=== PATIENT | male | born 1935 | race Caucasian/White ===

== ENCOUNTER 2017-04-29 11:11 | Inpatient (IN) | payer MEDICARE, OTHER ==
[~2017-04-29] VITALS: Ht 172.7 cm; Wt 72.0 kg
[~2017-04-29 11:11] MED LIST: AEC81 PO; AMLO-340 PO; ENOX150D4 SQ; FURO40TA7 PO; METOPROLOL; PANT40TA25 PO; RANO10003 PO; TERA10CA4 PO
[2017-04-29 11:51] LABS: HEMATOCRIT 29.3 % (42-54); MEAN CORPUSCULAR HEMOGLOBIN 35.2 pg (27.0-33.0); MEAN CORPUSCULAR HGB CONC 35.5 g/dL (32.0-36.0); PLATELET COUNT (AUTO) 139 K/uL (130-400); RED BLOOD CELL COUNT(AUTO) 2.96 MIL/uL (4.50-6.20); RED CELL DISTRIBUTION WIDTH 13.4 % (11.0-15.5); WHITE BLOOD COUNT (AUTO) 5.8 K/uL (4.8-10.8)
[2017-04-29 12:04] LABS: ALBUMIN 3.3 g/dL (3.5-5.0); BILIRUBIN,TOTAL 0.5 mg/dL (0.2-1.0); TOTAL PROTEIN, SERUM 6.5 g/dL (6.0-8.3)
[2017-04-29 12:06] LABS: CREATININE 2.4 mg/dL (0.5-1.5)
[2017-04-29 12:23] LABS: INR 1.11 (0.85-1.15); PARTIAL THROMBOPLASTIN TIME 29.4 SEC (26.3-35.5); PROTHROMBIN TIME 11.6 SEC (9.6-11.6)
[2017-04-29 12:43] LABS: CREATINE KINASE MB 0.5 ng/mL (0.5-3.6); MAGNESIUM 1.7 mg/dL (1.80-2.40)
[2017-04-29 15:20] VITALS: BP 143/55
[2017-04-29] MEDS: THIAMINE HCL 100 MG/ML 2ML VIAL IV SCH (15:50)
[2017-04-29] MEDS ORDERED: ONDANSETRON HCL 4 MG/2 ML VIAL IVP PRN (16:00)
[2017-04-29 20:00] VITALS: BP 120/57
[2017-04-29 21:57] LABS: CREATINE KINASE MB 0.6 ng/mL (0.5-3.6); CREATINE KINASE, TOTAL 29 U/L (21-232); MYOGLOBIN 144 ng/mL (10-92); TROPONIN I < 0.04 ng/mL (0.00-0.06)
[2017-04-30] VITALS (12 sets, daily range): BP systolic 110–139; BP diastolic 43–60
[2017-04-30 04:28] LABS: HEMATOCRIT 25.7 % (42-54); MEAN CORPUSCULAR HEMOGLOBIN 35.3 pg (27.0-33.0); MEAN CORPUSCULAR HGB CONC 35.9 g/dL (32.0-36.0); MEAN CORPUSCULAR VOLUME 98.5 fL (79-99); PLATELET COUNT (AUTO) 127 K/uL (130-400); RED BLOOD CELL COUNT(AUTO) 2.61 MIL/uL (4.50-6.20); RED CELL DISTRIBUTION WIDTH 13.9 % (11.0-15.5); WHITE BLOOD COUNT (AUTO) 6.3 K/uL (4.8-10.8)
[2017-04-30 04:57] LABS: CARBON DIOXIDE 31 mmol/L (21-32); CHLORIDE 101 mmol/L (101-111); CREATINE KINASE MB < 0.5 ng/mL (0.5-3.6); CREATINE KINASE, TOTAL 23 U/L (21-232); CREATININE 2.5 mg/dL (0.5-1.5); GLOMERULAR FILTR. RATE CALC 26 mL/min (>60); GLUCOSE,RANDOM 102 mg/dL (70-105); MYOGLOBIN 140 ng/mL (10-92); PHOSPHORUS 3.8 mg/dL (2.5-4.9); POTASSIUM 3.4 mmol/L (3.5-5.1); SODIUM SERUM 139 mmol/L (136-145); TROPONIN I < 0.04 ng/mL (0.00-0.06); UREA NITROGEN, BLOOD 17 mg/dL (7-18)
[2017-04-30] MEDS ORDERED: 0.9% SODIUM CHLORIDE 250 ML IV BAG IV PRN (06:15)
[2017-04-30] MEDS ORDERED: ALBUMIN (HUMAN) 25% 100 ML IV PRN (06:15)
[2017-04-30] MEDS: PANTOPRAZOLE SODIUM 40 MG TABLET.DR PO SCH (09:00)
[2017-04-30] MEDS: THIAMINE HCL 100 MG/ML 2ML VIAL IV SCH (09:00)
[2017-04-30] MEDS: SODIUM CHLORIDE 0.9% 1000ML 1,000 ML IV PRN (09:22)
[2017-04-30] MEDS: HEPARIN SODIUM 5000UNIT/ML 1ML VIAL IJ PRN (09:24)
[2017-04-30 09:48] LABS: CREATINE KINASE MB < 0.5 ng/mL (0.5-3.6); CREATINE KINASE, TOTAL 24 U/L (21-232); MYOGLOBIN 135 ng/mL (10-92); TROPONIN I < 0.04 ng/mL (0.00-0.06)
[2017-04-30] MEDS: METOCLOPRAMIDE 5 MG TABLET PO SCH ×2 (11:30→17:00)
[2017-05-01] VITALS (9 sets, daily range): BP systolic 101–137; BP diastolic 44–60
[2017-05-01] MEDS ORDERED: ASPI-555 PO (08:29)
[2017-05-01] MEDS ORDERED: PANT40TA25 PO (08:29)
[2017-05-01] MEDS ORDERED: APIX2.5T PO (08:29)
[2017-05-01] MEDS ORDERED: RANO10003 PO (08:29)
[2017-05-01] MEDS ORDERED: TORS20TA PO (08:29)
[2017-05-01] MEDS ORDERED: ATOR40TA69 PO (08:29)
[2017-05-01] MEDS ORDERED: AMIO200T2 PO (08:29)
[2017-05-01] MEDS ORDERED: ONDA4TAB7 PO (08:29)
[2017-05-01] MEDS ORDERED: NON-FORMULARY MEDICATION 1 EACH (Ranolazine (Ranexa) 1,000 MG) PO SCH (08:30)
[2017-05-01] MEDS ORDERED: ASPIRIN 81 MG EC TAB PO SCH (09:00)
[2017-05-01] MEDS ORDERED: TORSEMIDE 20 MG TAB PO SCH (09:00)
[2017-05-01] MEDS: AMIODARONE HCL 200 MG TABLET PO SCH ×2 (09:53→22:37)
[2017-05-01] MEDS: PANTOPRAZOLE SODIUM 40 MG TABLET.DR PO SCH (09:53)
[2017-05-01] MEDS: APIXABAN 2.5 MG TABLET PO SCH ×2 (09:53→21:00)
[2017-05-01] MEDS: THIAMINE HCL 100 MG/ML 2ML VIAL IV SCH (09:54)
[2017-05-01] MEDS: METOCLOPRAMIDE 5 MG TABLET PO SCH ×3 (09:59→17:39)
[2017-05-01] MEDS: RANOLAZINE 500 MG TAB.SR.12H PO SCH ×2 (09:59→22:37)
[2017-05-01] MEDS: ATORVASTATIN CALCIUM 40 MG TABLET PO SCH (22:37)
[2017-05-02 03:00] VITALS: BP 121/49
[2017-05-02 05:45] LABS: HEMATOCRIT 28.1 % (42-54); MEAN CORPUSCULAR HEMOGLOBIN 34.3 pg (27.0-33.0); MEAN CORPUSCULAR HGB CONC 34.9 g/dL (32.0-36.0); MEAN CORPUSCULAR VOLUME 98.2 fL (79-99); PLATELET COUNT (AUTO) 139 K/uL (130-400); RED BLOOD CELL COUNT(AUTO) 2.87 MIL/uL (4.50-6.20); RED CELL DISTRIBUTION WIDTH 13.4 % (11.0-15.5); WHITE BLOOD COUNT (AUTO) 6.7 K/uL (4.8-10.8)
[2017-05-02 05:51] LABS: POTASSIUM 3.5 mmol/L (3.5-5.1)
[2017-05-02 05:55] LABS: BAND NEUTROPHILS % (MANUAL) 1 % (0-2); EOSINOPHILS % (MANUAL) 5 % (1-6); LYMPHOCYTES % (MANUAL) 13 % (22-44); MONOCYTES % (MANUAL) 10 % (2-9); SEGMENTED NEUTROPHILS % 71 % (40-70)
[2017-05-02 05:56] LABS: MAN.DIFF COMMENT-IMPRESSION MANUAL DIFFERENTIAL; PLATELET MORPHOLOGY COMMENT SLIGHTLY DECREASED
[2017-05-02 08:31] VITALS: BP 128/49
[2017-05-02] MEDS: METOCLOPRAMIDE 5 MG TABLET PO SCH ×3 (09:43→17:41)
[2017-05-02] MEDS: RANOLAZINE 500 MG TAB.SR.12H PO SCH ×2 (09:44→23:40)
[2017-05-02] MEDS: THIAMINE HCL 100 MG/ML 2ML VIAL IV SCH (09:44)
[2017-05-02] MEDS: AMIODARONE HCL 200 MG TABLET PO SCH ×2 (09:44→23:40)
[2017-05-02] MEDS: PANTOPRAZOLE SODIUM 40 MG TABLET.DR PO SCH (09:44)
[2017-05-02 11:36] VITALS: BP 118/55
[2017-05-02 15:47] VITALS: BP 111/42
[2017-05-02 19:00] VITALS: BP 114/36
[2017-05-02 23:00] VITALS: BP 116/43
[2017-05-02] MEDS: ATORVASTATIN CALCIUM 40 MG TABLET PO SCH (23:40)
[2017-05-03 03:00] VITALS: BP 99/42
[2017-05-03 04:39] LABS: HEMATOCRIT 27.1 % (42-54); MEAN CORPUSCULAR HGB CONC 35.4 g/dL (32.0-36.0); MEAN CORPUSCULAR VOLUME 98.8 fL (79-99); PLATELET COUNT (AUTO) 146 K/uL (130-400); RED BLOOD CELL COUNT(AUTO) 2.74 MIL/uL (4.50-6.20); RED CELL DISTRIBUTION WIDTH 13.6 % (11.0-15.5); WHITE BLOOD COUNT (AUTO) 7.1 K/uL (4.8-10.8)
[2017-05-03 04:45] VITALS: BP 90/50
[2017-05-03 04:47] LABS: CREATININE 1.9 mg/dL (0.5-1.5); POTASSIUM 3.3 mmol/L (3.5-5.1)
[2017-05-03 04:50] LABS: INR 1.04 (0.85-1.15); PARTIAL THROMBOPLASTIN TIME 29.3 SEC (26.3-35.5); PROTHROMBIN TIME 10.9 SEC (9.6-11.6)
[2017-05-03 07:00] VITALS: BP 123/56
[2017-05-03] MEDS: METOCLOPRAMIDE 5 MG TABLET PO SCH ×2 (07:30→12:30)
[2017-05-03] MEDS: HEPARIN SODIUM 5000UNIT/ML 1ML VIAL IJ PRN (09:27)
[2017-05-03] MEDS: SODIUM CHLORIDE 0.9% 1000ML 1,000 ML IV PRN (09:28)
[2017-05-03] MEDS: RANOLAZINE 500 MG TAB.SR.12H PO SCH (10:33)
[2017-05-03] MEDS: THIAMINE HCL 100 MG/ML 2ML VIAL IV SCH (10:33)
[2017-05-03] MEDS: AMIODARONE HCL 200 MG TABLET PO SCH (10:33)
[2017-05-03] MEDS: PANTOPRAZOLE SODIUM 40 MG TABLET.DR PO SCH (10:33)
[2017-05-03 11:00] VITALS: BP 107/42
[2017-05-03] MEDS ORDERED: METO5TAB2 PO (12:43)
[2017-05-03] MEDS ORDERED: RANO500T2 PO (12:43)
[2017-05-03 15:46] VITALS: BP 100/45
== END 2017-05-03 17:05 | disposition home or self-care (01) | DRG 682 ==
LOC: EDH 11:11 → EDHIP 13:50 → 3CH 14:13
PROVIDERS: ADMIT Internal Medicine Nephrology; ATTEND Internal Medicine Nephrology
PROC: 5A1D70Z Performance of Urinary Filtration, Intermittent, Less than 6 Hours Per Day (ICD-10-PCS; principal; 2017-04-29)
PROC: 5A1D70Z Performance of Urinary Filtration, Intermittent, Less than 6 Hours Per Day (ICD-10-PCS; 2017-04-29)
PROC: 5A1D70Z Performance of Urinary Filtration, Intermittent, Less than 6 Hours Per Day (ICD-10-PCS; 2017-04-29)
DX: I12.0 Hypertensive chronic kidney disease with stage 5 chronic kidney disease or end stage renal disease (principal); N18.6 End stage renal disease; I42.9 Cardiomyopathy, unspecified; I48.0 Paroxysmal atrial fibrillation; I48.91 Unspecified atrial fibrillation; K31.84 Gastroparesis; E78.5 Hyperlipidemia, unspecified; Z99.2 Dependence on renal dialysis; I25.10 Atherosclerotic heart disease of native coronary artery without angina pectoris; Z95.1 Presence of aortocoronary bypass graft; D64.9 Anemia, unspecified; Z72.0 Tobacco use; Z79.01 Long term (current) use of anticoagulants; Z80.8 Family history of malignant neoplasm of other organs or systems; Z82.49 Family history of ischemic heart disease and other diseases of the circulatory system; Z83.3 Family history of diabetes mellitus
CPT/HCPCS: 36415; 70450; 72125; 80048; 80053; 82550; 82553; 82948; 83735; 83874; 84100; 84443; 84484; 85025; 85027; 85610; 85730; 90935; 93005; 93306; 93880; 97039; J1644; J3411; J7030

== ENCOUNTER → 2019-12-24 | Outpatient (CLI) | payer MEDICARE ==
[~2019-12-24] MED LIST changes: -AEC81 PO; +AMIO200T5 PO; -AMLO-340 PO; +APIX2.5T PO; +ASPI-556 PO; +ATOR40TA69 PO; -ENOX150D4 SQ; -FURO40TA7 PO; +METO5TAB2 PO; -METOPROLOL; +ONDA4TAB7 PO; -PANT40TA25 PO; +PANT40TA54 PO; -RANO10003 PO; +RANO500T2 PO; -TERA10CA4 PO
== END | disposition home or self-care (01) ==
LOC: SHCH 09:17
PROVIDERS: ATTEND Internal Medicine Cardiovascular Disease
DX: R06.09 Other forms of dyspnea (principal)
CPT/HCPCS: 93306; 93356

== ENCOUNTER → 2020-01-05 | Outpatient (CLI) | payer MEDICARE ==
[~2020-01-05] MED LIST changes: -AMIO200T5 PO; +AMIO200T6 PO
== END | disposition home or self-care (01) ==
LOC: RAH 12:48
PROVIDERS: ATTEND Internal Medicine Cardiovascular Disease
DX: J98.11 Atelectasis (principal); R18.8 Other ascites; J84.10 Pulmonary fibrosis, unspecified; J90 Pleural effusion, not elsewhere classified
CPT/HCPCS: 71250

== ENCOUNTER → 2020-03-30 | Outpatient (CLI) | payer MEDICARE ==
[~2020-03-30] MED LIST changes: +ALBUTEROL SULFATE 0.083% 2.5 MG/3 ML INH IH ONE
== END | disposition home or self-care (01) ==
LOC: RESP 07:59
PROVIDERS: ATTEND Internal Medicine Cardiovascular Disease
DX: I25.5 Ischemic cardiomyopathy (principal); J45.909 Unspecified asthma, uncomplicated
CPT/HCPCS: 94060; 94727; 94729

== ENCOUNTER 2020-12-01 13:57 | Inpatient (IN) | payer MEDICARE ==
[~2020-12-01] VITALS: Ht 172.7 cm; Wt 75.9 kg
[~2020-12-01 13:57] MED LIST changes: -ALBUTEROL SULFATE 0.083% 2.5 MG/3 ML INH IH ONE
[2020-12-01 14:12] VITALS: BP 121/56
[2020-12-01 14:20] VITALS: BP 121/56
[2020-12-01] MEDS ORDERED: GUAIFENESIN-DM 200/20 MG 10 ML PO ONE (15:00)
[2020-12-01 15:13] LABS: BASOPHILS % (AUTO) 0.8 % (0.0-5.0); EOSINOPHILS % (AUTO) 2.1 % (0.0-8.0); HEMATOCRIT 32.3 % (42-54); LYMPHOCYTES % (AUTO) 13.6 % (21.0-51.0); MEAN CORPUSCULAR HEMOGLOBIN 31.6 pg (27.0-33.0); MEAN CORPUSCULAR HGB CONC 31.9 g/dL (32.0-36.0); MEAN CORPUSCULAR VOLUME 99.1 fL (79-99); MONOCYTES % (AUTO) 10.4 % (3.0-13.0); NEUTROPHILS % (AUTO) 72.8 % (40.0-77.0); PLATELET COUNT (AUTO) 96 K/uL (130-400); RED BLOOD CELL COUNT(AUTO) 3.26 MIL/uL (4.50-6.20); RED CELL DISTRIBUTION WIDTH 14.6 % (11.0-15.5); WHITE BLOOD COUNT (AUTO) 6.6 K/uL (4.8-10.8)
[2020-12-01 15:28] LABS: INR 1.3 (0.85-1.15); PROTHROMBIN TIME 13.8 SEC (9.6-11.6)
[2020-12-01 15:30] LABS: PARTIAL THROMBOPLASTIN TIME 35.2 SEC (26.3-35.5)
[2020-12-01 15:44] LABS: CREATININE 2.8 mg/dL (0.5-1.5); POTASSIUM 3.8 mmol/L (3.5-5.1)
[2020-12-01 15:47] LABS: B-TYPE NATRIURETIC PEPTIDE 1360 pg/mL (0-100)
[2020-12-01 15:51] LABS: ALBUMIN 3.2 g/dL (3.5-5.0); BILIRUBIN,TOTAL 1.5 mg/dL (0.2-1.0); MAGNESIUM 2.1 mg/dL (1.80-2.40); TOTAL PROTEIN, SERUM 7.6 g/dL (6.0-8.3)
[2020-12-01 16:50] LABS: ABG HCO3 28.5 mmol/L (21.0-28.0); ABG OXYGEN SATURATION 94.1 % (95.0-99.0); ABG PCO2 42 mmHg (35-48)
[2020-12-01] MEDS ORDERED: IOHEXOL 350 MG/ML 100ML INFUS..BTL IV ONE (17:46)
[2020-12-01 18:00] VITALS: BP 134/56
[2020-12-01] MEDS ORDERED: DEXTROSE 50%-WATER 50 ML DISP.SYRIN IV PRN (19:30)
[2020-12-01] MEDS ORDERED: GLUCAGON 1MG KIT 1 MG ML IM PRN (19:30)
[2020-12-01] MEDS ORDERED: ONDANSETRON 4MG INJ IVP PRN (20:00)
[2020-12-01 20:46] VITALS: BP 136/52
[2020-12-01] MEDS: INSULIN HUMULIN R 100 UNIT/ML 3ML SQ SCH (21:00)
[2020-12-01] MEDS: METOPROLOL TARTRATE 25 MG TAB PO SCH ×2 (21:00→21:28)
[2020-12-01 21:09] LABS: APPEARANCE,URINE CLEAR (CLEAR); BILIRUBIN,URINE SMALL (NEGATIVE); COLOR,URINE YELLOW (YELLOW); GLUCOSE, URINE (UA) NEGATIVE (NEGATIVE); KETONES,URINE 5 mg/dL (NEGATIVE); LEUKOCYTE ESTERASE ,URINE NEGATIVE (NEGATIVE); NITRATE,URINE NEGATIVE (NEGATIVE); OCCULT BLOOD,URINE SMALL (NEGATIVE); PROTEIN,URINE 100 mg/dL (NEGATIVE)
[2020-12-01 21:18] LABS: BACTERIA,URINE Few /HPF (None Seen); MUCUS,URINE Moderate LPF (None Seen); SQUAMOUS EPITHELIAL CELL,UR Few /HPF (0-2)
[2020-12-01] MEDS: HEPARIN 5,000 UNIT VIAL SQ SCH (21:28)
[2020-12-01] MEDS: FUROSEMIDE 40MG VIAL IVP SCH (21:28)
[2020-12-02] VITALS (31 sets, daily range): BP systolic 99–144; BP diastolic 43–85
[2020-12-02 04:09] LABS: BASOPHILS % (AUTO) 0.8 % (0.0-5.0); EOSINOPHILS % (AUTO) 2.5 % (0.0-8.0); HEMATOCRIT 30.2 % (42-54); LYMPHOCYTES % (AUTO) 13.5 % (21.0-51.0); MEAN CORPUSCULAR HEMOGLOBIN 31.9 pg (27.0-33.0); MEAN CORPUSCULAR HGB CONC 31.8 g/dL (32.0-36.0); MEAN CORPUSCULAR VOLUME 100.3 fL (79-99); MONOCYTES % (AUTO) 10.8 % (3.0-13.0); PLATELET COUNT (AUTO) 82 K/uL (130-400); RED BLOOD CELL COUNT(AUTO) 3.01 MIL/uL (4.50-6.20); RED CELL DISTRIBUTION WIDTH 14.7 % (11.0-15.5); WHITE BLOOD COUNT (AUTO) 7.5 K/uL (4.8-10.8)
[2020-12-02 04:19] LABS: MAGNESIUM 2.1 mg/dL (1.80-2.40); POTASSIUM 3.7 mmol/L (3.5-5.1)
[2020-12-02] MEDS: INSULIN HUMULIN R 100 UNIT/ML 3ML SQ SCH ×4 (07:30→20:18)
[2020-12-02] MEDS: ASPIRIN 81MG CHEW TAB PO SCH (09:00)
[2020-12-02] MEDS: EPOETIN ALFA-EPBX (ESRD) 10,000 UNIT/ML VIAL SQ SCH (09:00)
[2020-12-02] MEDS: Vitamin B Complex/Vit C/Folic Acid PO SCH (09:00)
[2020-12-02] MEDS: HEPARIN 5,000 UNIT VIAL SQ SCH (09:00)
[2020-12-02] MEDS: METOPROLOL TARTRATE 25 MG TAB PO SCH ×2 (09:00→20:56)
[2020-12-02 17:07] LABS: APPEARANCE BODY FLUID CLOUDY (CLEAR); COLOR,BODY FLUID DARK YELLOW (LT YELLOW); SPECIMENTYPE,BODY FLUID THORACENTESIS; TOTAL VOLUME,BODY FLUID 1700 mL
[2020-12-02 17:08] LABS: BODY FLUID RBC 3437 /cu. mm.; BODY FLUID WBC 105 /cu. mm.
[2020-12-02 17:19] LABS: BF LYMPHOCYTE 75 %; BF MONOCYTE 2 %
[2020-12-02] MEDS: ATORVASTATIN 40 MG TABLET PO SCH (20:33)
[2020-12-02] MEDS: FUROSEMIDE 40MG VIAL IVP SCH (20:33)
[2020-12-03] VITALS (7 sets, daily range): BP systolic 101–113; BP diastolic 44–51
[2020-12-03 05:29] LABS: HEMATOCRIT 28.1 % (42-54); MEAN CORPUSCULAR HGB CONC 32.4 g/dL (32.0-36.0); MEAN CORPUSCULAR VOLUME 98.9 fL (79-99); RED BLOOD CELL COUNT(AUTO) 2.84 MIL/uL (4.50-6.20); RED CELL DISTRIBUTION WIDTH 14.6 % (11.0-15.5); WHITE BLOOD COUNT (AUTO) 7.1 K/uL (4.8-10.8)
[2020-12-03 05:48] LABS: CREATININE 3.1 mg/dL (0.5-1.5); POTASSIUM 3.6 mmol/L (3.5-5.1)
[2020-12-03] MEDS: INSULIN HUMULIN R 100 UNIT/ML 3ML SQ SCH ×4 (06:33→20:14)
[2020-12-03] MEDS: METOPROLOL TARTRATE 25 MG TAB PO SCH ×2 (09:33→20:14)
[2020-12-03] MEDS: ASPIRIN 81MG CHEW TAB PO SCH (09:33)
[2020-12-03] MEDS: Vitamin B Complex/Vit C/Folic Acid PO SCH (09:34)
[2020-12-03] MEDS: PANTOPRAZOLE 40 MG TAB DR PO SCH (09:34)
[2020-12-03 15:11] LABS: HEPATITIS Bs ANTIGEN SCREEN P Negative (Negative)
[2020-12-03] MEDS: ATORVASTATIN 40 MG TABLET PO SCH (20:14)
[2020-12-03] MEDS: FUROSEMIDE 40MG VIAL IVP SCH (20:15)
[2020-12-04 04:32] VITALS: BP 120/45
[2020-12-04] MEDS: INSULIN HUMULIN R 100 UNIT/ML 3ML SQ SCH ×4 (06:22→20:27)
[2020-12-04] MEDS: METOPROLOL TARTRATE 25 MG TAB PO SCH ×2 (08:30→20:08)
[2020-12-04] MEDS: ASPIRIN 81MG CHEW TAB PO SCH (08:31)
[2020-12-04] MEDS: PANTOPRAZOLE 40 MG TAB DR PO SCH (08:31)
[2020-12-04] MEDS: Vitamin B Complex/Vit C/Folic Acid PO SCH (08:31)
[2020-12-04 09:16] VITALS: BP 108/49
[2020-12-04 12:19] VITALS: BP 119/57
[2020-12-04 16:29] LABS: APPEARANCE,URINE CLEAR (CLEAR); BILIRUBIN,URINE MODERATE (NEGATIVE); COLOR,URINE BROWN (YELLOW); GLUCOSE, URINE (UA) NEGATIVE (NEGATIVE); KETONES,URINE 15 mg/dL (NEGATIVE); LEUKOCYTE ESTERASE ,URINE TRACE (NEGATIVE); NITRATE,URINE POSITIVE (NEGATIVE); OCCULT BLOOD,URINE LARGE (NEGATIVE); PROTEIN,URINE 100 mg/dL (NEGATIVE)
[2020-12-04 16:47] VITALS: BP 119/60
[2020-12-04 16:50] LABS: AMORPHOUS SEDIMENT,UR Few /LPF (None Seen); BACTERIA,URINE Few /HPF (None Seen); MUCUS,URINE Few LPF (None Seen); RBC,URINE 26-50 /HPF (0-1); SQUAMOUS EPITHELIAL CELL,UR Few /HPF (0-2)
[2020-12-04 20:01] VITALS: BP 121/45
[2020-12-04] MEDS: APIXABAN 2.5 MG TABLET PO SCH (20:03)
[2020-12-04] MEDS: ATORVASTATIN 40 MG TABLET PO SCH (20:05)
[2020-12-04] MEDS: FUROSEMIDE 40MG VIAL IVP SCH (20:05)
[2020-12-04 23:31] VITALS: BP 141/58
[2020-12-05] VITALS (20 sets, daily range): BP systolic 101–137; BP diastolic 37–73
[2020-12-05] MEDS: INSULIN HUMULIN R 100 UNIT/ML 3ML SQ SCH ×4 (06:25→20:52)
[2020-12-05] MEDS: Vitamin B Complex/Vit C/Folic Acid PO SCH (08:39)
[2020-12-05] MEDS: PANTOPRAZOLE 40 MG TAB DR PO SCH (08:39)
[2020-12-05] MEDS: ASPIRIN 81MG CHEW TAB PO SCH (08:39)
[2020-12-05] MEDS: APIXABAN 2.5 MG TABLET PO SCH ×2 (08:39→20:48)
[2020-12-05] MEDS: METOPROLOL TARTRATE 25 MG TAB PO SCH ×2 (08:39→20:52)
[2020-12-05 08:59] LABS: HEMATOCRIT 28.2 % (42-54); MEAN CORPUSCULAR HEMOGLOBIN 31.6 pg (27.0-33.0); MEAN CORPUSCULAR HGB CONC 31.9 g/dL (32.0-36.0); MEAN CORPUSCULAR VOLUME 98.9 fL (79-99); PLATELET COUNT (AUTO) 101 K/uL (130-400); RED BLOOD CELL COUNT(AUTO) 2.85 MIL/uL (4.50-6.20); RED CELL DISTRIBUTION WIDTH 14.5 % (11.0-15.5); WHITE BLOOD COUNT (AUTO) 5.5 K/uL (4.8-10.8)
[2020-12-05 09:14] LABS: CREATININE 6.2 mg/dL (0.5-1.5); POTASSIUM 3.7 mmol/L (3.5-5.1)
[2020-12-05 09:43] LABS: EOSINOPHILS % (MANUAL) 3 % (1-6); LYMPHOCYTES % (MANUAL) 7 % (22-44); MAN.DIFF COMMENT-IMPRESSION MANUAL DIFFERENTIAL; MONOCYTES % (MANUAL) 10 % (2-9); SEGMENTED NEUTROPHILS % 80 % (40-70)
[2020-12-05 09:45] LABS: PLATELET MORPHOLOGY COMMENT SLIGHTLY DECREASED
[2020-12-05] MEDS: 0.9%NACL 1000ML 1,000 ML IV SCH (12:00)
[2020-12-05] MEDS ORDERED: LIDOCAINE 5% TOPICAL PATCH TP SCH (12:00)
[2020-12-05] MEDS ORDERED: DIPHENHYDRAMINE HCL 25 MG CAPSULE PO PRN (12:00)
[2020-12-05] MEDS: EPOETIN ALFA-EPBX (ESRD) 10,000 UNIT/ML VIAL SQ SCH (14:54)
[2020-12-05] MEDS: ATORVASTATIN 40 MG TABLET PO SCH (20:48)
[2020-12-05] MEDS: FUROSEMIDE 40MG VIAL IVP SCH (20:51)
[2020-12-06 04:10] VITALS: BP 109/49
[2020-12-06 05:31] LABS: HEMATOCRIT 29.2 % (42-54); MEAN CORPUSCULAR HEMOGLOBIN 31.6 pg (27.0-33.0); MEAN CORPUSCULAR HGB CONC 31.5 g/dL (32.0-36.0); MEAN CORPUSCULAR VOLUME 100.3 fL (79-99); RED BLOOD CELL COUNT(AUTO) 2.91 MIL/uL (4.50-6.20); RED CELL DISTRIBUTION WIDTH 14.5 % (11.0-15.5); WHITE BLOOD COUNT (AUTO) 6.3 K/uL (4.8-10.8)
[2020-12-06 05:48] LABS: CREATININE 4.3 mg/dL (0.5-1.5); POTASSIUM 4.1 mmol/L (3.5-5.1)
[2020-12-06] MEDS: INSULIN HUMULIN R 100 UNIT/ML 3ML SQ SCH ×2 (05:53→11:30)
[2020-12-06 08:00] VITALS: BP 128/42
[2020-12-06] MEDS: 0.9%NACL 1000ML 1,000 ML IV SCH (08:00)
[2020-12-06] MEDS: ASPIRIN 81MG CHEW TAB PO SCH (10:36)
[2020-12-06] MEDS: METOPROLOL TARTRATE 25 MG TAB PO SCH (10:36)
[2020-12-06] MEDS: APIXABAN 2.5 MG TABLET PO SCH (10:37)
[2020-12-06] MEDS: Vitamin B Complex/Vit C/Folic Acid PO SCH (10:37)
[2020-12-06] MEDS: PANTOPRAZOLE 40 MG TAB DR PO SCH (10:37)
[2020-12-06 12:00] VITALS: BP 114/37
== END 2020-12-06 13:45 | disposition home or self-care (01) | DRG 291 ==
LOC: EDH 13:57 → EDHIP 17:00 → 3AH 12-02 09:47
PROVIDERS: ADMIT Internal Medicine Infectious Disease; ATTEND Internal Medicine Infectious Disease
PROC: 0W9B3ZZ Drainage of Left Pleural Cavity, Percutaneous Approach (ICD-10-PCS; principal; 2020-12-02)
PROC: 5A1D70Z Performance of Urinary Filtration, Intermittent, Less than 6 Hours Per Day (ICD-10-PCS; 2020-12-02)
PROC: 5A1D70Z Performance of Urinary Filtration, Intermittent, Less than 6 Hours Per Day (ICD-10-PCS; 2020-12-06)
DX: I13.2 Hypertensive heart and chronic kidney disease with heart failure and with stage 5 chronic kidney disease, or end stage renal disease (principal); J96.91 Respiratory failure, unspecified with hypoxia; N18.6 End stage renal disease; I50.33 Acute on chronic diastolic (congestive) heart failure; I48.19 Other persistent atrial fibrillation; D68.69 Other thrombophilia; J44.1 Chronic obstructive pulmonary disease with (acute) exacerbation; J98.11 Atelectasis; J91.8 Pleural effusion in other conditions classified elsewhere; E78.5 Hyperlipidemia, unspecified; E11.22 Type 2 diabetes mellitus with diabetic chronic kidney disease; D69.6 Thrombocytopenia, unspecified; D63.1 Anemia in chronic kidney disease; Z20.822 Contact with and (suspected) exposure to COVID-19; K74.60 Unspecified cirrhosis of liver; I25.10 Atherosclerotic heart disease of native coronary artery without angina pectoris; E87.70 Fluid overload, unspecified; E78.00 Pure hypercholesterolemia, unspecified; I08.1 Rheumatic disorders of both mitral and tricuspid valves; R53.81 Other malaise; Z79.01 Long term (current) use of anticoagulants; Z95.1 Presence of aortocoronary bypass graft; Z99.2 Dependence on renal dialysis; Z87.891 Personal history of nicotine dependence; Z80.1 Family history of malignant neoplasm of trachea, bronchus and lung; Z82.49 Family history of ischemic heart disease and other diseases of the circulatory system
CPT/HCPCS: 32555; 36415; 36600; 71045; 71275; 80048; 80053; 81001; 82550; 82803; 82945; 82948; 83036; 83615; 83735; 83874; 83880; 83986; 84157; 84484; 85025; 85027; 85610; 85730; 86704; 86706; 87071; 87088; 87116; 87205; 87206; 87340; 87635; 87804; 87880; 88112; 88305; 89051; 90935; 93005; 93356; 94760; 97039; C1729; C8929; C9803; G0378; J1644; J1940; Q9967